=== PATIENT | male | born 1990 | race Caucasian/White ===

== ENCOUNTER 2019-11-17 15:31 | Emergency (ER) | payer SELFPAY ==
[2019-11-17 15:33] VITALS: BP 142/85; PULSE 119; RESP 16; TEMP 37.1; O2SAT 100; BMI 32.2
--- NOTE | 2019-11-17 16:23 | ED.VISSUMM ---
- ER Visit Summary Date of Service: 11/17/19 Chief Complaint: Nausea, vomiting, cough History of Present Illness: The patient is a 29 M who presents with nausea, vomiting, cough that has been getting worse over the past 3 days. Patient states he has been vomiting stomach contents. Patient denies any hematemesis or coffee-ground emesis. Patient denies any diarrhea. Patient states he is coughing up some brown sputum. Patient admits to subjective fevers and chills. Patient also admits to a sore throat. Patient also states he has had general myalgias. Patient denies any chest pain or shortness of breath. Patient denies any urinary complaints. Physical Examination: Vital signs are stable except for mild tachycardia of 119. Patient is afebrile. Patient is in no acute distress. Oral mucosa is pink and moist. Neck is supple. Trachea is midline. There is no JVD. Heart was regular and tachycardic. Lungs are clear and equal bilaterally. Abdomen is soft. Bowel sounds are normal. There is no tenderness. Cranial nerves II through XII are intact. There are no focal motor or sensory deficits noted. Emergency Department Course and Treatment: Patient was advised that this is a viral illness. Patient was instructed to take Tylenol or ibuprofen as needed for any fevers or aches. Patient was instructed to drink plenty of fluids. Patient was instructed to follow-up with his primary care physician in 5 to 7 days. Patient was given a note for work for today. Patient understood and was agreeable with the plan. All questions were answered. Disposition: Discharge home Impression: Viral illness This note was generated with [employer] dictation software. It may contain incorrect words, spelling, and punctuation that were not noted in review of the chart prior to signing ED Disposition - Plan for ED Patient: Disposition: Home or Assisted Living Diagnosis: Viral illness Instructions: VIRAL SYNDROME (Adult) Additional Instructions: Drink plenty of fluids. Take Tylenol or Motrin as needed for any aches or fevers. Follow-up with your primary care physician in 5 to 7 days.
== END 2019-11-17 16:56 | disposition home or self-care (01) ==
LOC: ED 16:30
PROVIDERS: Emergency Provider Emergency Medicine
DX: B34.9 Viral infection, unspecified (principal); R11.2 Nausea with vomiting, unspecified; J02.9 Acute pharyngitis, unspecified; M79.10 Myalgia, unspecified site; R00.0 Tachycardia, unspecified; R05 Cough
CPT/HCPCS: 99282

== ENCOUNTER 2019-12-05 20:05 | Emergency (ER) | payer SELFPAY ==
[2019-12-05 20:05] VITALS: BP 162/112; PULSE 104; RESP 18; TEMP 36.7; O2SAT 95; BMI 31.6
[2019-12-05 20:44] LABS: Absolute Lymphocyte Count 2.82 X10^3/uL (0.83-4.51); Absolute Neutrophil Count 4.8 X10^3/uL (2.0-7.7); Basophil# 0.08 X10^3/uL; Eosinophil# 0.14 X10^3/uL; Eosinophils% 1.7 % (0-5); Hematocrit 47.6 % (40-54); Hemoglobin 15.8 g/dL (13.0-16.5); Lymphocyte # 2.82 X10^3/ul (4.0); Lymphocyte % 33.6 % (19-41); Mean Corp Hgb Conc 33.2 g/dL (32-36); Mean Corpuscular Hgb 28.4 pg (27.0-32.0); Mean Corpuscular Volume 85.5 fL (80-94); Mean Platelet Vol. 9.7 fl (6.2-12.0); Monocyte# 0.57 X10^3/uL; Monocyte% 6.8 % (0-10); NRBC Flagged by Analyzer 0 % (0-5); Neutrophil # 4.75 X10^3/uL (2.7-7.7); Neutrophil % 56.5 % (47-70); Platelet Count 297 K/mm3 (150-450); RBC Distribution Width CV 12.7 % (11.6-14.6); RBC Distribution Width SD 39.6 fl (35.1-43.9); Red Blood Count 5.57 M/mm3 (4.6-6.2); White Blood Count 8.4 K/mm3 (4.4-11.0)
--- NOTE | 2019-12-05 20:47 | ED.VIS.GEN ---
History of Present Illness Chief Complaint: Suicidal Informant: Patient, Family Onset: Month(s) Maximum Severity: Mild Narrative: The patient presents with mother who complains that the patient is suicidal, he has a history of alcohol drug cocaine abuse, apparently recently over the last 3 days he has been drinking and she believes possibly using cocaine or other drugs they could not find him over the last 24 hours or so then they were monitoring his Facebook posts were able to identify where his location was, they picked him up, there was some concern that the police had been told he was missing so they took him to the police station so the police could see that he was with family and stop any search activities, and police suggested he be brought to the emergency department because his suicidal ideation Other reports he has been suicidal in the past does not believe he seen a counselor, she does not recall him ever undergoing alcohol or drug detox she indicates he has no past history the patient admits that sometimes he thinks he should just kill himself and he at times has chronic thoughts of suicide for unspecified reasons he does not have a specific plan Past Medical History - Allergies and Home Meds Allergies/Adverse Reactions: Allergies No Known Allergies Allergy (Verified 12/05/19 20:06) Primary Care Physician: Care Physician,No Primary [Primary Care Provider] - Past Medical History: - Smoking Status: Current every day smoker Review of Systems ROS: - Again alcohol use and abuse General: Denies: Chills, Fever, Sweats Eyes: Denies: Visual changes - bilaterally, Diplopia ENT: Denies: Rhinorrhea, Sore throat Cardiovascular: Denies: Chest pain, Palpitations Respiratory: Denies: Dyspnea, Cough, Dyspnea on exertion Gastrointestinal: Denies: Abdominal pain, Nausea, Vomiting, Diarrhea, Melena, Hematochezia Genitourinary: Denies: Dysuria, Hematuria, Frequency Musculoskeletal: Denies: Back pain, Extremity Pain Skin: Denies: Rash, Wounds Neurological: Denies: Headache, Weakness, Numbness Physical Exam Vital Signs/Narrative: Vital Signs Temp Pulse Resp BP Pulse Ox 12/05/19 20:05 98.0 F 104 H 18 162/112 H 95 General: Well nourished, Well developed, No Acute Distress Head: Normocephalic, Atraumatic Eyes: Perrl, EOMI ENT: Moist mucous membranes, No rhinorrhea Neck: Supple, Nontender Cardiovascular: Regular rate, Regular rhythm, No murmurs Respiratory: No distress, CTA bilaterally, Chest nontender Abdomen: Soft, Nontender, Nondistended, Normal bowel sounds Back: Nontender, Normal Inspection Extremities: Nontender, No edema Skin: Normal color, No rash Neurological: Alert, Oriented x3, Cranial nerves II-XII grossly intact, Normal Strength, Normal Sensation Psychological: Normal affect, Normal Mood Diagnostic/Tx/Re-eval - Medical Decision Making He is awake and alert he is cooperative he is indicating he does not really care what happens to him, he does admit that he was drinking and using drugs he admits to being suicidal almost on a daily basis, given all the above we have obtained mental health screening evaluation and asked mental health services seen for the management disposition Disposition per mental health evaluation Final impression suicidal ideation, alcohol and drug abuse ED Disposition - Plan for ED Patient: Diagnosis: Suicidal ideation, Alcohol and drug abuse Instructions: Alcohol Intoxication, Drug Abuse Referrals: Care Physician,No Primary [Primary Care Provider] -
[2019-12-05 20:56] LABS: Anion Gap 6 (5-15); BUN 7 mg/dL (7-18); BUN/Creat Ratio 7.9 RATIO (10-20); Chloride 111 mmol/L (98-107); Creatinine, Serum 0.89 mg/dL (0.70-1.30); EST Glomerular Filtration Rate 107 mL/min (>60); Est Glom Filt Rate - Afr Amer 129 mL/min (>60); Glucose 85 mg/dL (74-106); Potassium 3.7 mmol/L (3.5-5.1); Sodium Level 144 mmol/L (136-145)
[2019-12-05 21:01] LABS: Amphetamine Urine VISTA POSITIVE (<1000 ng/mL); Barbiturate Urine VISTA NEGATIVE (< 200 ng/mL); Benzodiazepine Urine VISTA NEGATIVE (< 200 ng/mL); Cocaine Urine VISTA POSITIVE (< 300 ng/mL); Ecstacy Urine VISTA NEGATIVE (< 500 ng/mL); Methadone Urine VISTA NEGATIVE (< 300 ng/mL); PCP Urine VISTA NEGATIVE (< 25 ng/mL); THC Urine VISTA NEGATIVE (< 50 ng/mL); Vista UDS pH Range 7
[2019-12-05 21:10] VITALS: RESP 16
[2019-12-05 22:20] VITALS: RESP 16
[2019-12-05 23:54] VITALS: RESP 18
[2019-12-06] VITALS (18 sets, daily range): BP systolic 121–159; BP diastolic 64–95; PULSE 72–104; RESP 12–18; O2SAT 97–99
--- NOTE | 2019-12-06 02:20 | EKG12_ITS ---
Test Reason : [facility] [place] Blood Pressure : / mmHG Vent. Rate : 094 BPM Atrial Rate : 094 BPM P-R Int : 166 ms QRS Dur : 090 ms QT Int : 344 ms P-R-T Axes : 064 037 011 degrees QTc Int : 430 ms Normal sinus rhythm Normal ECG Confirmed by JOSÉ SOUZA MD ([id number]), health editor GEGE BURNS ([id number]) on 12/08/2019 8:22:33 AM Referred By: SAHRA Confirmed By:JOSÉ SOUZA MD
[2019-12-06 02:44] LABS: AST(SGOT) 39 U/L (15-37); Alanine Aminotransfer ALT/SGPT 49 U/L (16-61); Albumin, Serum 4.3 g/dL (3.2-5.0); Alkaline Phosphatase 86 U/L (45-117); Bilirubin, Direct 0.12 mg/dL (0.00-0.30); Globulin 3.9 g/dL (2.2-4.2); Protein, Total 8.2 g/dL (6.4-8.2)
[2019-12-06 05:03] LABS: Mucous, Urine 0 SEEN /hpf (<or=2+); Red Blood Cells-Urine 0 SEEN /hpf (0-5); Squamous Epithelial Cells - UA 0 SEEN /hpf (0-5); White Blood Cells 0 SEEN /hpf (0-5)
[2019-12-06 05:12] LABS: CPK Total, Creatine Kinase 561 U/L (39-308)
[2019-12-06 05:25] LABS: Color, Urine Yellow (Yellow); Glucose, Dipstick Normal (Normal); Ketone-Dipstick Negative (Negative); Leukocyte Esterase-Dipstick Negative /ul (Negative); Nitrite-Dipstick Negative (Negative); Occult Blood-Urine Negative /ul (Negative); Protein-Dipstick Negative (Negative); Specific Gravity, Urine 1.025 (1.002-1.030); Urine Bilirubin Dipstick Negative (Negative); Urine Clarity Cloudy (Clear); Urine Urobilinogen Normal (Normal)
[2019-12-06 05:58] LABS: Amorphous Sediment 3+; Bacteria 1+ /hpf (None Seen)
[2019-12-06 07:23] LABS: CPK Total, Creatine Kinase 478 U/L (39-308)
[2019-12-06] MEDS: Ondansetron ODT 4 MG Tablet 8 MG PO (13:15)
[2019-12-06] MEDS: LORazepam 1 MG Tablet PO (15:05)
--- NOTE | 2019-12-06 16:23 | ED.RN ---
called [facility] for update on patient. stated he is accepted but they will not have a male bed until the am.
[2019-12-07] VITALS (22 sets, daily range): BP systolic 119–146; BP diastolic 68–91; PULSE 59–86; RESP 14–18; O2SAT 97–99
--- NOTE | 2019-12-07 07:54 | ED.RN ---
CALL[facility]; SPOKE WITH ROBYN, THEY CANNOT CALL [facility] UNTIL AFTER 0900 TO SEE IF THEY HAVE HAD ANY D/C PTS
--- NOTE | 2019-12-07 10:21 | ED.RN ---
SPOKE WITH DEVIKA AT [facility]; NO UPDATE ON PT
--- NOTE | 2019-12-07 12:29 | ED.RN ---
SPOKE WITH [facility]; OPAL; LEFT SEVERAL MESSAGES WITH [facility] NO RESPONSE OF YET.
--- NOTE | 2019-12-07 16:02 | ED.RN ---
PER OPAL WITH [facility]; [facility] FINALLY CALLED BACK AND STATED THEY ARENT QUITE READY THEY HAVE ONE PT AHEAD OF HIM. OPAL IS HOPEFUL THEY WILL BE READY FOR HIM TODAY BUT CAN NOT GUARANTEE
--- NOTE | 2019-12-07 19:04 | NURSING ---
Report called to Adelita at [place], will call back светлана ETA
== END 2019-12-07 20:51 ==
PROVIDERS: Emergency Medicine; Emergency Provider Emergency Medicine
DX: R45.851 Suicidal ideations (principal); F10.10 Alcohol abuse, uncomplicated; F19.10 Other psychoactive substance abuse, uncomplicated; F17.200 Nicotine dependence, unspecified, uncomplicated
CPT/HCPCS: 80048; 80076; 80307; 80320; 81001; 82550; 84484; 85025; 93005; 99284; G0480

== ENCOUNTER 2022-06-01 05:05 | Emergency (ER) | payer OTHER, SELFPAY ==
[2022-06-01 05:07] VITALS: BP 140/97; PULSE 117; RESP 18; TEMP 36.1; O2SAT 96; BMI 37.8
--- NOTE | 2022-06-01 05:30 | EKG12_ITS ---
Test Reason : [facility] Blood Pressure : / mmHG Vent. Rate : 117 BPM Atrial Rate : 117 BPM P-R Int : 166 ms QRS Dur : 086 ms QT Int : 310 ms P-R-T Axes : 046 031 -03 degrees QTc Int : 432 ms Sinus tachycardia Otherwise normal ECG Confirmed by LEE LUZ, KEVIN ([id number]), digital editor GEGE BURNS ([id number]) on 06/04/2022 11:41:06 AM Referred By: DEVIN Confirmed By:JOCELYNE HOWARD MD
[2022-06-01 05:43] LABS: Absolute Lymphocyte Count 3.55 X10^3/uL (0.83-4.51); Absolute Neutrophil Count 10.2 X10^3/uL (2.0-7.7); Basophil# 0.09 X10^3/uL; Basophil% 0.6 % (0-1); Eosinophil# 0.07 X10^3/uL; Eosinophils% 0.5 % (0-5); Hematocrit 43.4 % (40-54); Hemoglobin 14.7 g/dL (13.0-16.5); Lymphocyte # 3.55 X10^3/ul (0.83-4.51); Lymphocyte % 24.1 % (19-41); Mean Corp Hgb Conc 33.9 g/dL (32-36); Mean Corpuscular Hgb 28.1 pg (27.0-32.0); Mean Corpuscular Volume 82.8 fL (80-94); Mean Platelet Vol. 9.9 fl (6.2-12.0); Monocyte# 0.74 X10^3/uL; NRBC Flagged by Analyzer 0 % (0-5); Neutrophil # 10.21 X10^3/uL (2.7-7.7); Neutrophil % 69.3 % (47-70); Platelet Count 255 K/mm3 (150-450); RBC Distribution Width CV 13.2 % (11.6-14.6); RBC Distribution Width SD 39.6 fl (35.1-43.9); Red Blood Count 5.24 M/mm3 (4.6-6.2); White Blood Count 14.7 K/mm3 (4.4-11.0)
[2022-06-01] MEDS: LORazepam 2 MG/ML Syringe 1 MG IV (05:48)
[2022-06-01] MEDS: 0.9% Normal Saline 1,000 ML 999 ML IV (05:48)
--- NOTE | 2022-06-01 06:00 | RAD_ITS ---
STUDY: X-RAY CHEST REASON FOR EXAM: Male, 31 years old. chest pain TECHNIQUE: PA and lateral. COMPARISON: None. FINDINGS: LUNGS: No consolidation. No pneumothorax. MEDIASTINUM: Unremarkable. CARDIAC SILHOUETTE: Not enlarged. BONES AND SOFT TISSUES: No acute abnormalities RAD/Chest PA and Lateral IMPRESSION: No evidence of active intrathoracic disease. Electronically Signed: Gloria Blake MD at 6:15 EDT ,
[2022-06-01 06:08] LABS: Anion Gap 6 (5-15); BUN 11 mg/dL (7-18); BUN/Creat Ratio 10.6 RATIO (10-20); Calcium,Total 9.2 mg/dL (8.5-10.1); Chloride 104 mmol/L (98-107); Creatinine, Serum 1.04 mg/dL (0.70-1.30); EST Glomerular Filtration Rate 87 mL/min (>60); Est Glom Filt Rate - Afr Amer 106 mL/min (>60); Estimated Creatinine Clearance 121.88 ml/min; Glucose 104 mg/dL (74-106); Magnesium 1.9 mg/dL (1.6-2.6); Potassium 3.9 mmol/L (3.5-5.1); Sodium Level 137 mmol/L (136-145); Troponin-I HS 3 pg/mL (3.0-78.0)
--- NOTE | 2022-06-01 06:18 | EDS_ITS ---
HPI History of Present Illness Chief Complaint: Chest Pain Narrative Narrative: Patient is a 31-year-old male who reports a past medical history of anxiety and depression as well as previous drug abuse. He states that he has been clean and sober for about a year and a half. He states that he had his child for the first time for 2 weeks straight the summer and had to give him back today. He states when he did this he became severely depressed and at that time decided to go back to using cocaine. Patient states he did cocaine multiple times from approximately midnight until 3 in the morning. He states he was lying down trying to go to sleep when he developed some chest discomfort. He denies any nausea vomiting diaphoresis shortness of breath associated with this. He states that he was trying to give it time to pass but it had not resolved in approximately 1 hour and therefore he comes in for evaluation. The patient does state that upon arrival to the ER the chest pain has resolved. He denies any recent travel surgery or history of DVT/PE. PFSH PFS Medical History no medical history Home Medications NK 11/17/19 [History Last Taken Unknown] Allergy/AdvReac Type Severity Reaction Status Date / Time Penicillins [PCN] Allergy PT UNSURE Verified 06/01/22 05:09 OF REACTION Surgical History no surgical history Social History Smoking Status: Current some day smoker tobacco type: cigarettes ROS ROS ED Constitutional Constitutional ED: Denies chills or fever(s) ENT ENT ED: Denies sore throat Cardiovascular Cardiovascular: Reports chest pain; Denies palpitations or racing heartbeat Respiratory/Chest Respiratory/Chest: Denies cough or dyspnea Gastrointestinal Gastrointestinal: Denies abdominal pain, diarrhea, nausea or vomiting Genitourinary Genitourinary ED: Denies dysuria Musculoskeletal Musculoskeletal: Denies back pain or myalgias Integumentary Denies rash Neurologic Neurologic: Denies headache(s) Psychiatric Psychiatric: Reports anxiety and depression; Denies suicidal ideation or suicidal thoughts Hematologic/Lymphatic Hematologic/Lymphatic: Denies easy bleeding or easy bruising EXAM Physical Exam Const Vital Signs: 06/01/22 05:07 06/01/22 05:10 Temperature 96.9 F L Temperature Source Temporal Pulse Rate 117 H Respiratory Rate 18 Respiratory Pattern Normal Blood Pressure 140/97 H Blood Pressure Mean 111 Pulse Ox 96 Positive well nourished, well developed and obese General Appearance ED: well developed Nutritional Appearance: obese Eyes PERRL and EOMs intact bilaterally Neck supple and no JVD Chest Wall palpation of chest normal Resp normal respiratory effort and clear to auscultation bilaterally Cardio regular rhythm Rate: tachycardic and other Other Details: Radial pulses are plus 2 out of 4 bilaterally are equal and symmetric GI normal to inspection, nondistended, normoactive bowel sounds, non-tender and non-distended GI Narrative: No voluntary guarding or rigidity no pulsatile mass or fluid wave Auscultation: normoactive bowel sounds Palpation: soft Extremity normal to inspection Extremity Narrative: No asymmetric edema no pitting edema negative Homans' sign bilaterally Neuro oriented x3 and CN's II-XII intact bilaterally Sensorium / Orientation: alert Psych Psych Narrative: Patient has a flat affect but no homicidal or suicidal ideations Skin no rashes or lesions noted MDM MDM MDM Narrative Medical decision making narrative: Patient presented to the ER tachycardic and mildly hypertensive which is consistent with his report of cocaine use. He states that his chest pain had resolved upon arrival to the ER. However as he did admit to cocaine use a basic cardiac work-up will be obtained. The patient's blood work showed a leukocytosis but otherwise there is no clinically significant findings with a normal troponin and D-dimer. Patient's chest x-ray also revealed no acute lung pathology. Patient was medicated with IV fluids and Ativan on on reevaluation he reports that the chest pain is still resolved and has not returned during his ER stay. Therefore at this time as the chest pain spontaneous resolved prior to arrival his work-up shows no signs of acute coronary artery disease or changes concerning for DVT/PE I do not feel there is need for further work-up and he is otherwise safe for discharge Lab Data Attestation: I reviewed the patient's lab results. Labs: Laboratory Results - last 24 hr 06/01/22 06/01/22 06/01/22 05:15 05:15 05:15 WBC 14.7 H RBC 5.24 Hgb 14.7 Hct 43.4 MCV 82.8 MCH 28.1 MCHC 33.9 RDW Std Deviation 39.6 RDW Coeff of Kana 13.2 Plt Count 255 MPV 9.9 Immature Gran % (Auto) 0.500 Neut % (Auto) 69.3 Lymph % (Auto) 24.1 [place] % (Auto) 5.0 Eos % (Auto) 0.5 Baso % (Auto) 0.6 Absolute Neuts (auto) 10.2 H Absolute Lymphs (auto) 3.55 Nucleated RBC % 0 D-Dimer Quant (PE/DVT) < 0.27 L Sodium 137 Potassium 3.9 Chloride 104 Carbon Dioxide 27.0 Anion Gap 6 BUN 11 Creatinine 1.04 Estim Creat Clear Calc 121.88 Est GFR (MDRD) Af Amer 106 Est GFR (MDRD) Non-Af 87 BUN/Creatinine Ratio 10.6 Glucose 104 Calcium 9.2 Magnesium 1.9 Troponin I High Sens 3 TSH 3.50 Radiography Diagnostic Testing: Clinical Impression(s) from Imaging Studies Chest X-Ray 06/01/22 06:00 IMPRESSION: No evidence of active intrathoracic disease. Electronically Signed: Gloria Blake MD at 6:15 EDT , 2 view chest x-ray as interpreted by the emergency medicine physician reveals no acute infiltrate pneumothorax or pleural effusion Discharge Plan Triage Chief Complaint: Chest Pain ED Provider: Anthony Vora Dx/Rx/DC Orders Clinical Impression: Cocaine abuse, Acute nonspecific chest pain with low risk of coronary artery disease Instructions: Cocaine: Understanding Its Effects, ED Chest Pain, Uncertain Cause Prescriptions: No Action NK Primary Care Provider: Care Physician,No Primary Referrals: Ruy Paez MD [Med Staff - Active Staff] - 1 Week if not improving Care Physician,No Primary [Primary Care Provider] - Disposition Disposition: Home, Self Care
[2022-06-01 06:28] LABS: D-Dimer Quantitative (DVT/PE) < 0.27 FEU/ug/m (0.27-0.49)
[2022-06-01 06:49] VITALS: BP 124/69; PULSE 96; RESP 17; O2SAT 94
[2022-06-01 07:00] VITALS: BP 128/80; PULSE 102; RESP 18
== END 2022-06-01 07:08 | disposition home or self-care (01) ==
PROVIDERS: Emergency Provider Emergency Medicine; Visit Provider Emergency Medicine
DX: F14.10 Cocaine abuse, uncomplicated (principal); F17.210 Nicotine dependence, cigarettes, uncomplicated; R07.9 Chest pain, unspecified; E66.9 Obesity, unspecified
CPT/HCPCS: 71046; 80048; 83735; 84443; 84484; 85025; 85379; 93005; 96361; 96374; 99284; J7030; A4216

== ENCOUNTER 2022-07-17 13:33 | Emergency (ER) | payer OTHER, SELFPAY ==
[2022-07-17] VITALS (10 sets, daily range): BP systolic 152–164; BP diastolic 83–109; PULSE 59–81; RESP 14–20; TEMP 36.1; O2SAT 96–99; BMI 36.6
--- NOTE | 2022-07-17 13:47 | EX.ED.VIS.PS ---
HPI HPI - Psych History of Present Illness Chief Complaint: Mental Health Narrative Narrative: Patient presents with anxiety suicidal ideations without a plan for a few days getting worse, he sought counseling center and was sent here. He has no plan but he blames most of his depression anxiety on his life, his job and the fact that he has nothing to look forward to in life, although a lot of his anxiety depression is chronic. PFSH PFS Medical History Anxiety Depression Home Medications NK 11/17/19 [History Last Taken Unknown] Allergy/AdvReac Type Severity Reaction Status Date / Time Penicillins [PCN] Allergy PT UNSURE Verified 07/17/22 13:37 OF REACTION Social History Smoking Status: Current some day smoker tobacco type: cigarettes ROS ROS ED ROS Narrative Past medical history: Reviewed Medications: Reviewed Social history: Noncontributory Review of systems: All systems negative except as indicated General: No fever Eyes: No visual changes ENT: No upper airway congestion, normal voice Neck: No neck pain Cardiovascular: No chest pain Respiratory: No shortness of breath or cough Gastrointestinal: No abdominal pain, nausea vomiting or diarrhea Genitourinary: No dysuria Musculoskeletal: Denies myalgias no difficulty with ambulation Skin: No rash Neurological: No memory loss, confusion or any focal weakness Psych: As in HPI Hematologic: No easy bleeding or easy bruising EXAM Physical Exam Narrative Exam Narrative: Physical exam General: Well nourished, Well developed, No Acute Distress Head: Normocephalic, Atraumatic Eyes: Conjunctiva not pale ENT: Moist mucous membranes Neck: Supple, Nontender, No lymphadenopathy Cardiovascular: Regular rate, Regular rhythm Respiratory: No distress, CTA bilaterally Abdomen: Soft, Nontender, Nondistended Back: Nontender, Normal Inspection. Negative for: CVA tenderness Extremities: Nontender, No edema Skin: Normal color, No rash Neurological: Alert, Normal Strength, Normal Sensation Psychological: He seems somewhat angry but he is not agitated. He otherwise appears well, he is lucid and coherent admits to being depressed and having suicidal ideations at times. Const Vital Signs: 07/17/22 13:34 Temperature 97 F L Temperature Source Temporal Pulse Rate 81 Respiratory Rate 18 Blood Pressure 164/109 H Blood Pressure Mean 127 Pulse Ox 96 Oxygen Delivery Method Room Air MDM MDM MDM Narrative Medical decision making narrative: Patient will be medically cleared. Otherwise he would likely need transfer I will call the psych liaison. He will be turned over to the coming ED physician Discharge Plan Triage Chief Complaint: Mental Health ED Provider: Ruy Salinas Dx/Rx/DC Orders Clinical Impression: Depression, Anxiety Prescriptions: No Action NK Primary Care Provider: Care Physician,No Primary Referrals: Care Physician,No Primary [Primary Care Provider] -
[2022-07-17 14:25] LABS: Absolute Lymphocyte Count 2.69 X10^3/uL (0.83-4.51); Absolute Neutrophil Count 5.1 X10^3/uL (2.0-7.7); Basophil# 0.05 X10^3/uL; Basophil% 0.6 % (0-1); Eosinophils% 3.4 % (0-5); Hematocrit 47.8 % (40-54); Hemoglobin 15.9 g/dL (13.0-16.5); Lymphocyte # 2.69 X10^3/ul (0.83-4.51); Lymphocyte % 30.5 % (19-41); Mean Corp Hgb Conc 33.3 g/dL (32-36); Mean Corpuscular Hgb 28.6 pg (27.0-32.0); Mean Corpuscular Volume 86.1 fL (80-94); Mean Platelet Vol. 9.6 fl (6.2-12.0); Monocyte% 7.9 % (0-10); NRBC Flagged by Analyzer 0 % (0-5); Neutrophil # 5.06 X10^3/uL (2.7-7.7); Neutrophil % 57.3 % (47-70); Platelet Count 251 K/mm3 (150-450); RBC Distribution Width CV 12.7 % (11.6-14.6); RBC Distribution Width SD 39.9 fl (35.1-43.9); Red Blood Count 5.55 M/mm3 (4.6-6.2); White Blood Count 8.8 K/mm3 (4.4-11.0)
[2022-07-17 14:39] LABS: Anion Gap 6 (5-15); BUN 14 mg/dL (7-18); BUN/Creat Ratio 14.5 RATIO (10-20); Calcium,Total 9.5 mg/dL (8.5-10.1); Chloride 107 mmol/L (98-107); Creatinine, Serum 0.96 mg/dL (0.70-1.30); EST Glomerular Filtration Rate 95 mL/min (>60); Est Glom Filt Rate - Afr Amer 115 mL/min (>60); Estimated Creatinine Clearance 130.81 ml/min; Glucose 94 mg/dL (74-106); Sodium Level 140 mmol/L (136-145)
[2022-07-17 14:43] LABS: Amphetamine Urine VISTA NEGATIVE (<1000 ng/mL); Barbiturate Urine VISTA NEGATIVE (< 200 ng/mL); Benzodiazepine Urine VISTA NEGATIVE (< 200 ng/mL); Cocaine Urine VISTA POSITIVE (< 300 ng/mL); Ecstacy Urine VISTA NEGATIVE (< 500 ng/mL); Methadone Urine VISTA NEGATIVE (< 300 ng/mL); PCP Urine VISTA NEGATIVE (< 25 ng/mL); THC Urine VISTA NEGATIVE (< 50 ng/mL); Vista UDS pH Range 5
--- NOTE | 2022-07-17 16:53 | ED.RN ---
PER COLE WITH [facility]; SHE DOES SEE WHERE GIL HAD STARTED THE ASSESSMENT ON THE PT BUT IT ISNT FINISHED YET [facility] WILL DO THE PLACEMENT PER COLE
--- NOTE | 2022-07-17 18:36 | CM.ED ---
SW Note Sanjana and Lashanda Douglas called from [facility]. Reviewed case. Sanjana said that if staff would fax medical clearance over then [place], SW front desk assistant can work on placement. Staff updated. Deirdre FAGAN
--- NOTE | 2022-07-17 18:45 | EKG12_ITS ---
Test Reason : [facility] [place] Pressure : / mmHG Vent. Rate : 067 BPM Atrial Rate : 067 BPM P-R Int : 182 ms QRS Dur : 094 ms QT Int : 386 ms P-R-T Axes : 066 054 011 degrees QTc Int : 407 ms Normal sinus rhythm Normal ECG Confirmed by HARLEY LUZ, JOSÉ ([id number]), general expeditor GEGE BURNS ([id number]) on 07/20/2022 9:37:59 AM Referred By: TL Confirmed By:JOSÉ SOUZA MD
[2022-07-18 01:00] VITALS: RESP 15
[2022-07-18 02:00] VITALS: RESP 15
[2022-07-18 03:00] VITALS: RESP 15
[2022-07-18 04:00] VITALS: RESP 16
[2022-07-18 06:00] VITALS: BP 139/75; PULSE 68; RESP 15; TEMP 36.4; O2SAT 95
[2022-07-18 06:27] VITALS: BP 139/75; PULSE 68; RESP 15; TEMP 36.4; O2SAT 95
== END 2022-07-18 06:47 ==
PROVIDERS: Emergency Provider Emergency Medicine; Visit Provider Emergency Medicine
DX: F32.A Depression, unspecified (principal); F41.9 Anxiety disorder, unspecified; R45.851 Suicidal ideations; F17.210 Nicotine dependence, cigarettes, uncomplicated
CPT/HCPCS: 80048; 80307; 82077; 85025; 87811; 93005; 99285

== ENCOUNTER 2024-08-03 11:28 | Emergency (ER) | payer SELFPAY ==
[2024-08-03 11:29] VITALS: BP 125/96; PULSE 89; RESP 16; TEMP 36.6; O2SAT 99; BMI 34.2
--- NOTE | 2024-08-03 11:52 | EKG12_ITS ---
Test Reason : Blood Pressure : / mmHG Vent. Rate : 082 BPM Atrial Rate : 082 BPM P-R Int : 190 ms QRS Dur : 090 ms QT Int : 356 ms P-R-T Axes : 068 057 020 degrees QTc Int : 415 ms Normal sinus rhythm with sinus arrhythmia Normal ECG Confirmed by HARLEY LUZ, JOSÉ ([id number]), development editor DG العراقي ([id number]) on 08/04/2024 8:43:25 AM Referred By: CATHERINE Confirmed By:JOSÉ SOUZA MD
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
--- NOTE | 2024-08-03 11:56 | ED.RN ---
pt refused NG
[2024-08-03 12:06] LABS: Hematocrit 50.1 % (40-54); Hemoglobin 16.3 g/dL (13.0-16.5); Mean Corp Hgb Conc 32.5 g/dL (32-36); Mean Corpuscular Hgb 27.3 pg (27.0-32.0); Mean Corpuscular Volume 83.9 fL (80-94); Mean Platelet Vol. 10.1 fl (6.2-12.0); Platelet Count 244 K/mm3 (150-450); RBC Distribution Width CV 13.4 % (11.6-14.6); RBC Distribution Width SD 41.1 fl (35.1-43.9); Red Blood Count 5.97 M/mm3 (4.6-6.2); White Blood Count 11.9 K/mm3 (4.4-11.0)
--- NOTE | 2024-08-03 12:10 | RAD_ITS ---
STUDY: X-RAY CHEST REASON FOR EXAM: Male, 34 years old. Left-sided chest pain. TECHNIQUE: Frontal and lateral views of the chest on 3 images. COMPARISON: June 01, 2022 FINDINGS: The lungs are clear and expanded. There is no demonstrated pleural abnormality. Normal size heart. Normal mediastinum and otto. Normal visualized pulmonary arteries. Normal visualized aortic arch and descending thoracic aorta. Normal visualized thoracic spine. Normal visualized ribs, clavicles, and shoulders. No abnormality of the visualized soft tissue structures of the upper abdomen. RAD/Chest PA and Lateral IMPRESSION: Stable chest with no acute or active cardiopulmonary disease. Electronically Signed: Ismael Davis MD at 12:20 EDT ,
[2024-08-03 12:22] LABS: ALB/GLOB Ratio 1.1 RATIO (0.9-2.4); AST(SGOT) 25 U/L (15-37); Alanine Aminotransfer ALT/SGPT 37 U/L (16-61); Alkaline Phosphatase 99 U/L (45-117); Anion Gap 9 (5-15); BUN 9 mg/dL (7-18); BUN/Creat Ratio 9.7 RATIO (10-20); Calcium,Total 9.1 mg/dL (8.5-10.1); Chloride 104 mmol/L (98-107); Creatinine, Serum 0.93 mg/dL (0.70-1.30); EST Glomerular Filtration Rate 98 mL/min (>60); Est Glom Filt Rate - Afr Amer 119 mL/min (>60); Estimated Creatinine Clearance 157.53 ml/min; Globulin 3.8 g/dL (2.2-4.2); Glucose 97 mg/dL (74-106); Lipase 25 U/L (13-75); Potassium 4.1 mmol/L (3.5-5.1); Protein, Total 7.8 g/dL (6.4-8.2); Sodium Level 139 mmol/L (136-145)
[2024-08-03 12:28] VITALS: BP 153/85; PULSE 71; RESP 28; O2SAT 95
[2024-08-03 13:00] VITALS: BP 145/77; PULSE 72; RESP 16; TEMP 36.8; O2SAT 98
== END 2024-08-03 13:27 | disposition left against medical advice (07) ==
PROVIDERS: Emergency Provider Emergency Medicine; Visit Provider Emergency Medicine
DX: R07.82 Intercostal pain (principal); K22.6 Gastro-esophageal laceration-hemorrhage syndrome; K92.0 Hematemesis; R03.0 Elevated blood-pressure reading, without diagnosis of hypertension; R10.12 Left upper quadrant pain; F32.A Depression, unspecified; F41.9 Anxiety disorder, unspecified; F10.90 Alcohol use, unspecified, uncomplicated; F17.210 Nicotine dependence, cigarettes, uncomplicated
CPT/HCPCS: 71046; 80053; 83690; 85027; 93005; 99283; A4216